=== PATIENT | female | born 1995 | race Caucasian/White ===

== ENCOUNTER → 2023-07-21 16:49 | Outpatient (CLI) | payer OTHER, SELFPAY ==
--- NOTE | 2023-07-21 | DI.MRI.S_ITS ---
PROCEDURE: MR KNEE RT WO CON INDICATIONS: RIGHT KNEE PAIN TECHNIQUE: Noncontrast sagittal PD fast spin echo and T2 fast spin echo with fat saturation, sagittal 3-D FLASH with fat saturation; coronal T1 spin echo and PD fast spin echo with fat saturation, and axial PD fast spin echo with fat saturation through the knee. COMPARISON: None. FINDINGS: Image quality: Excellent. Menisci: The medial and lateral menisci demonstrate normal morphology and internal signal. The meniscal root ligaments appear intact. Cruciate ligaments: The anterior cruciate ligament is mildly thickened with intrasubstance T2 hyperintense signal. The posterior cruciate ligament is intact. Medial structures: The medial collateral ligament appears mildly thickened with adjacent soft tissue edema. Visualized portions of the pes anserinus tendons appear normal. No abnormal bursal fluid. Lateral structures: The lateral collateral ligament is thickened at its femoral insertion. The long and short heads of the biceps femoris tendon appear intact. The popliteus tendon appears normal. Edema deep to the iliotibial band along lateral periphery of lateral femoral condyle is seen. Anterior structures: Distal quadriceps tendinosis is seen. The patellar tendon is intact. Patellar alignment is normal. No femoral trochlear dysplasia or ventral trochlear prominence. No edema in the infrapatellar fat pad. Bones and cartilage: Mild marrow edema involving posterior and lateral periphery of lateral femoral condyle and posterior aspect of medial tibial plateau is seen without discrete fracture line. 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 Hardly Michelle medial and lateral femoral tibial compartment is normal in thickness. Joint space: There is small to moderate knee joint fluid. No gross loose bodies. No Marques's cyst. Normal appearing synovial plicae are incidentally noted. IMPRESSION: 1. Soft tissue edema deep to the iliotibial band over lateral femoral condyle suggest clinical correlation for iliotibial band syndrome. 2. Low-grade ACL sprain. No full-thickness ACL rupture. The PCL is intact. 3. Low-grade MCL sprain. Low-grade proximal LCL sprain. 4. Distal quadriceps tendinosis. 5. Bony contusion involving posterior aspect of medial tibial plateau and posterior lateral periphery of lateral femoral condyle without discrete fracture line. 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 Small to moderate joint effusion, no gross loose bodies. Dictated by: Alex Gaines M.D. on 07/22/2023 at 9:28 Approved by: Alex Gaines M.D. on 07/22/2023 at 9:32
== END ==
LOC: MRI 16:51
PROVIDERS: Referring Provider Orthopaedic Surgery; Visit Provider Orthopaedic Surgery
DX: S83.511A Sprain of anterior cruciate ligament of right knee, initial encounter (principal); S83.411A Sprain of medial collateral ligament of right knee, initial encounter; S83.421A Sprain of lateral collateral ligament of right knee, initial encounter; S80.01XA Contusion of right knee, initial encounter; M22.41 Chondromalacia patellae, right knee; M25.461 Effusion, right knee; M25.561 Pain in right knee
CPT/HCPCS: 73721